=== PATIENT | male | born 1945 | race Caucasian/White ===

== ENCOUNTER 2016-07-13 23:05 | Inpatient (IN) | payer MEDICARE, OTHER ==
[~2016-07-13] VITALS: Ht 167.6 cm; Wt 89.8 kg
[2016-07-13] MEDS ORDERED: HYDROCODONE/APAP 5-325MG TABLET PO ONE (23:45)
[2016-07-13] MEDS ORDERED: HYDROCODONE/APAP 5-325MG TABLET ONE (23:47)
--- NOTE | 2016-07-14 00:22 | NUR ---
Patient is resting comfortably in bed with eyes closed
--- NOTE | 2016-07-14 02:00 | NUR ---
Patient is resting comfortably in bed with eyes closed
--- NOTE | 2016-07-14 03:20 | NUR ---
Patient awoke and requested something to eat, provided to him. Patient made several statements throughout encounted which led staff to beleive that he is having difficulties managing his medical care including issues with transportation, appointment management, and proper follow up. 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
--- NOTE | 2016-07-14 04:15 | NUR ---
Patient is resting comfortably in bed with eyes closed
--- NOTE | 2016-07-14 05:33 | NUR ---
Patient is resting comfortably in bed with eyes closed
--- NOTE | 2016-07-14 06:35 | NUR ---
LARON reviewed case, patient to be admitted.
--- NOTE | 2016-07-14 06:40 | NUR ---
PER L[facility]ON PAGED [facility], MANAGER RECRUITING STATED WILL HAVE MD BEKA PEOPLES PAGEPete...
[2016-07-14 07:21] LABS: BASOPHILS # (AUTO) 0.1 K/uL (0.0-8.0); BASOPHILS % (AUTO) 0.9 % (0.0-2.0); EOSINOPHILS # (AUTO) 0.4 K/uL (0.0-0.7); HEMATOCRIT 43.7 % (36.7-47.1); HEMOGLOBIN 14.8 g/dL (12.5-16.3); LYMPHOCYTES # (AUTO) 2.6 K/uL (20.0-40.0); LYMPHOCYTES % (AUTO) 29.5 % (20.5-51.5); MEAN CORPUSCULAR HEMOGLOBIN 32.3 uug (23.8-33.4); MEAN CORPUSCULAR HGB CONC 34 g/dL (32.5-36.3); MEAN CORPUSCULAR VOLUME 95.8 fL (73.0-96.2); MONOCYTES # (AUTO) 0.9 K/uL (2.0-10.0); MONOCYTES % (AUTO) 10.4 % (0.0-11.0); NEUTROPHILS % (AUTO) 55.2 % (38.5-71.5); PLATELET COUNT (AUTO) 191 K/uL (152-348); RED BLOOD CELL COUNT(AUTO) 4.56 MIL/uL (4.06-5.63); RED CELL DISTRIBUTION WIDTH 11.6 % (12.1-16.2)
[2016-07-14 07:29] LABS: CALCIUM 8.8 mg/dL (8.5-10.1); CHLORIDE 104 mmol/L (98-107); CREATININE 0.9 mg/dL (0.6-1.3); GFR 84 mL/min (>60); GLUCOSE 84 mg/dL (74-106); POTASSIUM 3.9 mmol/L (3.5-5.1); SODIUM SERUM 142 mmol/L (136-145); UREA NITROGEN, BLOOD 19 mg/dL (7-18)
[2016-07-14 07:32] LABS: ETHANOL < 3 MG/DL (0-0)
[2016-07-14 07:33] LABS: CARBON DIOXIDE 33 mmol/L (21-32)
[2016-07-14 07:38] LABS: ALANINE AMINOTRANSFERASE 29 U/L (16-63); ALBUMIN 3.6 g/dL (3.4-5.0); ALKALINE PHOSPHATASE 75 U/L (50-136); ASPARTATE AMINOTRANSFERASE 18 U/L (15-37); BILIRUBIN,DIRECT 0.1 mg/dL (0.0-0.2); BILIRUBIN,TOTAL 0.9 mg/dL (0.2-1.0); TOTAL PROTEIN, SERUM 7.4 g/dL (6.4-8.2)
--- NOTE | 2016-07-14 07:53 | NUR ---
sbar report to merary mahajan, belongings list, sdmit order written, breakfast given to pt.
--- NOTE | 2016-07-14 09:00 | NUR ---
PATIENT BROUGHT FROM THE ER NURSE. NO S/S OF DISTRESS NOTED. C/O OF PAIN 5/10 RIGHT ARM DUE TO FRACTURE. PATIENT IS A/O X4, BUT SEEM DEPRESSED FROM RECENT FAMILY . ADMISSIONS ASSESSMENTS WERE AND CHARTER. NEW IV INSERTED BY KENA, CHARGE NURSE. CALLED DR. RUTHERFORD FOR PAIN MEDICATIONS ORDERS. WILL CONTINUE MONITORING.
[2016-07-14 09:23] VITALS: BP 129/66
[2016-07-14] MEDS: HYDROMORPHONE 1 MG/1 ML DISP.SYRIN IV PRN ×2 (10:41→20:00)
[2016-07-14 11:13] VITALS: BP 150/73
[2016-07-14] MEDS ORDERED: ACETAMINOPHEN 325 MG TABLET PO PRN (11:45)
[2016-07-14] MEDS ORDERED: ZOLPIDEM 5 MG TABLET PO PRN (11:45)
[2016-07-14] MEDS ORDERED: ONDANSETRON 4 MG/2 ML VIAL IV PRN (11:45)
[2016-07-14] MEDS ORDERED: MAGNESIUM HYDROXIDE 30 ML LIQUID UDC PO PRN (11:45)
--- NOTE | 2016-07-14 12:00 | NUR ---
PATIENT MEDICATION WITH DILAUDID 0.5MG DUE TO INCREASE OF PAIN. WILL CONTINUE MONITORING FOR PAIN MANAGEMENT.
[2016-07-14 15:15] VITALS: BP 123/72
[2016-07-14 19:00] VITALS: BP 123/73
[2016-07-14] MEDS: DOCUSATE SODIUM 100 MG CAPSULE PO SCH (20:03)
[2016-07-14] MEDS ORDERED: DOCUSATE SODIUM 250 MG CAPSULE PO SCH (21:00)
[2016-07-15 04:00] VITALS: BP 110/53
[2016-07-15] MEDS: PANTOPRAZOLE SODIUM 40 MG TABLET.DR PO SCH (06:31)
--- NOTE | 2016-07-15 06:46 | NUR ---
PT IN BED, RESTING. SLEPT MOST SHIFT. DILAUDID GIVEN FOR C/O R SHOULDER PAIN, AND WAS HELPFUL. R ARM BRACE IN PLACE. AMBULATED TO THE BATHROOM. SAFETY MAINTAINED. CALL LIGHT WITHIN REACH.
[2016-07-15 06:57] LABS: BASOPHILS % (AUTO) 0.1 % (0.0-2.0); EOSINOPHILS # (AUTO) 0.3 K/uL (0.0-0.7); EOSINOPHILS % (AUTO) 3.1 % (0.0-7.0); HEMATOCRIT 41.4 % (36.7-47.1); HEMOGLOBIN 13.8 g/dL (12.5-16.3); LYMPHOCYTES # (AUTO) 1.6 K/uL (20.0-40.0); LYMPHOCYTES % (AUTO) 16.1 % (20.5-51.5); MEAN CORPUSCULAR HEMOGLOBIN 32.2 uug (23.8-33.4); MEAN CORPUSCULAR HGB CONC 33 g/dL (32.5-36.3); MEAN CORPUSCULAR VOLUME 96.4 fL (73.0-96.2); MONOCYTES # (AUTO) 0.7 K/uL (2.0-10.0); MONOCYTES % (AUTO) 7.2 % (0.0-11.0); NEUTROPHILS # (AUTO) 7.3 K/uL (1.8-8.9); NEUTROPHILS % (AUTO) 73.5 % (38.5-71.5); PLATELET COUNT (AUTO) 183 K/uL (152-348); RED BLOOD CELL COUNT(AUTO) 4.29 MIL/uL (4.06-5.63); RED CELL DISTRIBUTION WIDTH 12.1 % (12.1-16.2); WHITE BLOOD COUNT (AUTO) 9.9 K/uL (3.6-10.2)
[2016-07-15 07:24] LABS: THYROID STIMULATING HORMONE 0.91 mIU/mL (0.358-3.740)
--- NOTE | 2016-07-15 07:30 | NUR ---
PT RECEIVED IN BED AWAKE.C/O PAIN NOTED,V/S ARE STABLE.MORNING ASSESSMENT DONE.BREAKFAST SERVED.
[2016-07-15] MEDS: HYDROCODONE/APAP 5-325MG TABLET PO PRN ×2 (07:44→21:32)
[2016-07-15 08:24] LABS: ALBUMIN 3.1 g/dL (3.4-5.0); BILIRUBIN,TOTAL 1.3 mg/dL (0.2-1.0); CALCIUM 8.3 mg/dL (8.5-10.1); CREATININE 0.8 mg/dL (0.6-1.3); MAGNESIUM 1.9 mg/dL (1.8-2.4); POTASSIUM 3.9 mmol/L (3.5-5.1); TOTAL PROTEIN, SERUM 6.4 g/dL (6.4-8.2)
[2016-07-15 11:15] VITALS: BP 116/66
[2016-07-15 15:18] VITALS: BP 129/66
[2016-07-15 19:00] VITALS: BP 122/61
--- NOTE | 2016-07-15 19:45 | NUR ---
RECEIVED PT AMBULATING IN ROOM, STEADY GAIT. A/OX4, IN NO ACUTE DISTRESS. NO SOB NOTED/REPORTED. NO C/O PAIN AT THIS TIME. VS STABLE. SAVMIENTO BRACE NOTED ON R ARM/SHOULDER, IN PLACE. NEEDS MET AT THIS TIME. WILL CONTINUE TO MONITOR.
[2016-07-15] MEDS: DOCUSATE SODIUM 100 MG CAPSULE PO SCH (21:33)
[2016-07-16] MEDS: HYDROCODONE/APAP 5-325MG TABLET PO PRN ×2 (03:12→20:02)
[2016-07-16 05:00] VITALS: BP 124/74
[2016-07-16] MEDS: PANTOPRAZOLE SODIUM 40 MG TABLET.DR PO SCH (06:24)
--- NOTE | 2016-07-16 06:44 | NUR ---
PT SITTING UP IN CHAIR AT THIS TIME. COOPERATIVE WITH CARE, ABLE TO MAKE NEEDS KNOWN. SLEPT WELL PER SHIFT. NO ACUTE DISTRESS NOTED. C/O R SHOULDER PAIN MANAGED WITH NORCO PRN, GIVEN X2, EFFECTIVE. NO OTHER COMPLAINTS. ALL NEEDS MET. CALL LIGHT WITHIN REACH. SAFETY MAINTAINED.
--- NOTE | 2016-07-16 07:30 | NUR ---
pt received in bed awake watching tv.pt is axox4.morning assessment done.
--- NOTE | 2016-07-16 07:30 | NUR ---
pt received sitting in the chair ,axox3.pt seen by dr fernández .breakfast served.
[2016-07-16 11:40] VITALS: BP 121/64
[2016-07-16 11:45] VITALS: BP 121/64
[2016-07-16 15:09] VITALS: BP 125/70
[2016-07-16 20:00] VITALS: BP 120/65
[2016-07-16] MEDS: DOCUSATE SODIUM 100 MG CAPSULE PO SCH (20:02)
--- NOTE | 2016-07-16 20:02 | NUR ---
RECEIVED PT IN BED, WATCHING TV, IN NO ACUTE DISTRESS. C/O L SHOULDER/ARM PAIN, REQUESTING PRN NORCO, GIVEN PRESCRIBED, WILL REASSESS. VS WNL. NO S/S OF RESPIRATORY DISTRESS NOTED. ON ROOM AIR. CALL LIGHT IS WITHIN REACH. SAFETY MAINTAINED.
--- NOTE | 2016-07-17 03:04 | NUR ---
PT RESTING WELL IN BED, NO ACUTE DISTRESS OR SIGNIFICANT CHANGES NOTED. WILL CONTINUE TO MONITOR.
[2016-07-17 06:02] VITALS: BP 116/66
[2016-07-17] MEDS: PANTOPRAZOLE SODIUM 40 MG TABLET.DR PO SCH (06:35)
[2016-07-17 07:15] LABS: EOSINOPHILS # (AUTO) 0.3 K/uL (0.0-0.7); EOSINOPHILS % (AUTO) 3.9 % (0.0-7.0); HEMATOCRIT 43.5 % (40-50); HEMOGLOBIN 14.7 G/DL (14.0-18.0); LYMPHOCYTES # (AUTO) 2.1 K/uL (20.0-40.0); LYMPHOCYTES % (AUTO) 23.3 % (20.5-51.5); MEAN CORPUSCULAR HEMOGLOBIN 32.3 UUG (27.0-31.0); MEAN CORPUSCULAR HGB CONC 34 g/dL (32.0-37.0); MEAN CORPUSCULAR VOLUME 95.7 FL (82.0-92.0); MONOCYTES # (AUTO) 0.7 K/uL (2.0-10.0); MONOCYTES % (AUTO) 7.7 % (0.0-11.0); NEUTROPHILS # (AUTO) 5.9 K/uL (1.8-8.9); NEUTROPHILS % (AUTO) 65.1 % (38.5-71.5); PLATELET COUNT (AUTO) 194 K/UL (150-450); RED BLOOD CELL COUNT(AUTO) 4.55 MIL/UL (4.7-6.1); RED CELL DISTRIBUTION WIDTH 11.8 % (11.5-14.5)
[2016-07-17 07:18] LABS: ALBUMIN 3.4 g/dL (3.4-5.0); BILIRUBIN,TOTAL 1.2 mg/dL (0.2-1.0); CALCIUM 8.7 mg/dL (8.5-10.1); CREATININE 0.9 mg/dL (0.6-1.3); MAGNESIUM 2.1 mg/dL (1.8-2.4); POTASSIUM 4.3 mmol/L (3.5-5.1); TOTAL PROTEIN, SERUM 6.9 g/dL (6.4-8.2)
[2016-07-17] MEDS ORDERED: Acetaminophen PO (11:03)
[2016-07-17] MEDS ORDERED: MAGN400O4 PO (11:03)
[2016-07-17] MEDS ORDERED: HYDR-3326 PO (11:03)
[2016-07-17] MEDS ORDERED: FAMO-132 PO (11:03)
[2016-07-17] MEDS ORDERED: Docusate Sodium PO (11:03)
[2016-07-17] MEDS ORDERED: Zolpidem Tartrate PO (11:03)
[2016-07-17 11:56] VITALS: BP 121/77
--- NOTE | 2016-07-17 13:34 | NUR ---
D/C ORDERS RECEIVED NOTED AND CARRIED OUT.D/C INSTRUCTIONS AND RN REPORT GIVEN TO THE [facility].D/C HE[place]OCK PER MD ORDERS.PT LEFT THE FACILITY VIA AMBULANCES IN STABLE CONDITIONS.
== END 2016-07-17 13:47 | DRG 563 ==
LOC: ER 23:05 → MED 07-14 08:01
PROVIDERS: ADMIT Internal Medicine; ATTEND Internal Medicine
DX: S42.301A Unspecified fracture of shaft of humerus, right arm, initial encounter for closed fracture (principal); V03.10XA Pedestrian on foot injured in collision with car, pick-up truck or van in traffic accident, initial encounter; Y92.414 Local residential or business street as the place of occurrence of the external cause; M19.90 Unspecified osteoarthritis, unspecified site; E66.9 Obesity, unspecified; F31.9 Bipolar disorder, unspecified; Z68.32 Body mass index [BMI] 32.0-32.9, adult; Y93.9 Activity, unspecified; E80.6 Other disorders of bilirubin metabolism; D75.89 Other specified diseases of blood and blood-forming organs; S40.021A Contusion of right upper arm, initial encounter
CPT/HCPCS: 36415; 71010; 73060; 73090; 83735; 84100; 84443; 85025; 93005; 97001; 97003; 97116; 97530; 97535; A4663; G6040-TC; J1170

== ENCOUNTER 2017-01-17 12:50 | Emergency (ER) | payer MEDICARE, OTHER ==
[~2017-01-17] VITALS: Ht 172.7 cm; Wt 81.6 kg
[~2017-01-17 12:50] MED LIST: Acetaminophen PO; Docusate Sodium PO; FAMO-132 PO; HYDR-3326 PO; MAGN400O6 PO; Zolpidem Tartrate PO
--- NOTE | 2017-01-17 13:21 | NUR ---
Patient discharged to home in stable conditon. Written and verbal after care instructions given. Patient verbalizes understanding of instructions. Stressed follow up for recheck in 2days or return to ER for worsening s/s.
== END 2017-01-17 13:22 | disposition home or self-care (01) ==
LOC: ER 12:50
DX: L02.211 Cutaneous abscess of abdominal wall (principal)
CPT/HCPCS: 99283; A4663